=== PATIENT | male | born 1955 | race African-American/Black ===

== ENCOUNTER 2022-12-02 08:11 | Emergency (ER) | payer OTHER ==
[2022-12-02 08:16] VITALS: RESP 17; BMI 27.2
[2022-12-02] MEDS ORDERED: SODIUM CHLORIDE 1,000 ML IV STA (09:04)
[2022-12-02] MEDS ORDERED: ACETAMINOPHEN 1000 MG/100 ML BAG IVPB ONE (09:04)
[2022-12-02 09:50] LABS: BASO % 0.8 % (0-2.0); EOS % 1.1 % (0-4.5); HEMATOCRIT 39.4 % (35.4-49); MCH 30.7 pg (25.7-33.7); MCHC 32.9 g/dl (32.0-35.9); MEAN CELL VOLUME 93.3 fl (80-96); MEAN PLT VOLUME 8.9 fl (7.5-11.1); NEUT % 57.1 % (42.8-82.8); PLATELET COUNT 186 10^3/uL (134-434); RBC 4.23 M/mm3 (4.00-5.60); RDW 13.3 % (11.9-15.9); WHITE BLOOD COUNT 5.1 K/mm3 (4.0-10.0)
[2022-12-02] MEDS ORDERED: ACETAMINOPHEN INJECTION 100 ML IVPB ONE (09:56)
[2022-12-02 09:57] LABS: INR 1.13 (0.83-1.09); PROTHROMBIN TIME (PATIENT) 13.1 SEC (9.7-13.0)
[2022-12-02 10:00] LABS: ACTIVATED PTT 31.8 SECONDS (25.2-36.5)
[2022-12-02 10:13] LABS: BLOOD UREA NITROGEN 14.2 mg/dL (7-18); CALCIUM 9.2 mg/dL (8.5-10.1); MAGNESIUM 2.2 mg/dL (1.8-2.4)
[2022-12-02 10:14] LABS: ALBUMIN 3.9 g/dl (3.4-5.0)
[2022-12-02 10:16] LABS: CREATININE 1.1 mg/dL (0.55-1.3)
[2022-12-02 10:18] LABS: BILIRUBIN,TOTAL 0.6 mg/dL (0.2-1); TOT PROT 7.1 g/dl (6.4-8.2)
[2022-12-02 12:05] LABS: URINE APPEARANCE CLEAR; URINE COLOR YELLOW; URINE GLUCOSE (UA) NEGATIVE (NEGATIVE)
[2022-12-02 12:06] LABS: PH,URINE 7.5 (5.0-8.0); URINE BILIRUBIN NEGATIVE (NEGATIVE); URINE KETONE NEGATIVE (NEGATIVE); URINE LEUK ESTERASE NEGATIVE (NEGATIVE); URINE NITRITE NEGATIVE (NEGATIVE); URINE PROTEIN NEGATIVE (NEGATIVE)
[2022-12-02 12:25] VITALS: BP 150/82; PULSE 64; TEMP 98.4
== END 2022-12-02 12:35 | disposition home or self-care (01) ==
LOC: JER 08:11
PROC: 3E033NZ Introduction of Analgesics, Hypnotics, Sedatives into Peripheral Vein, Percutaneous Approach (ICD-10-PCS; principal; 2022-12-02)
PROC: 3E0337Z Introduction of Electrolytic and Water Balance Substance into Peripheral Vein, Percutaneous Approach (ICD-10-PCS; 2022-12-02)
DX: N28.1 Cyst of kidney, acquired (principal); K59.09 Other constipation; R10.84 Generalized abdominal pain
CPT/HCPCS: 36415; 74177-TC; 80053; 81003; 83605; 83690; 83735; 85025; 85610; 85730; 87086; 96361; 96374; 99285-25; Q9967

== ENCOUNTER 2022-12-03 03:18 | Emergency (ER) | payer OTHER ==
[2022-12-03 03:24] VITALS: RESP 18; TEMP 98.4; BMI 27.2
[2022-12-03] MEDS ORDERED: MAG HYDROX/AL HYDROX/SIMETH 30 ML UNIT-DOSE CUP PO ONE (04:40)
[2022-12-03] MEDS ORDERED: POLYETHYLENE GLYCOL (HEALTHYLAX) 3350 17 GM PACKET PO ONE (04:45)
[2022-12-03] MEDS ORDERED: POLYETHYLENE GLYCOL (HEALTHYLAX) 3350 17 GM PACKET ONE (05:38)
[2022-12-03] MEDS ORDERED: MAG HYDROX/AL HYDROX/SIMETH 30 ML UNIT-DOSE CUP ONE (05:38)
[2022-12-03 06:29] VITALS: BP 160/86; PULSE 59
== END 2022-12-03 06:45 | disposition home or self-care (01) ==
LOC: JER 03:18
DX: K59.00 Constipation, unspecified (principal); R10.32 Left lower quadrant pain
CPT/HCPCS: 99284-25

== ENCOUNTER 2024-05-05 08:45 | Emergency (ER) | payer OTHER ==
[2024-05-05 09:29] VITALS: RESP 17; BMI 27.2
[2024-05-05 09:40] LABS: BASO % 0.8 % (0-2.0); EOS % 1.6 % (0-4.5); HEMATOCRIT 40.6 % (35.4-49); HEMOGLOBIN 13.4 GM/dL (11.7-16.9); LYMPH % 23.4 % (8-40); MCH 31.1 pg (25.7-33.7); MCHC 32.9 g/dl (32.0-35.9); MEAN CELL VOLUME 94.6 fl (80-96); MEAN PLT VOLUME 9.2 fl (7.5-11.1); MONO % 16.1 % (3.8-10.2); NEUT % 58.1 % (42.8-82.8); PLATELET COUNT 197 10^3/uL (134-434); RDW 13.4 % (11.9-15.9); WHITE BLOOD COUNT 3.8 K/mm3 (4.0-10.0)
[2024-05-05] MEDS: SODIUM PHOSPHATE/NA BIPHOS 133 ML ENEMA PR ONE (09:43)
[2024-05-05 09:48] LABS: INR 1.09 (0.83-1.09); PROTHROMBIN TIME (PATIENT) 12.5 SEC (9.7-13.0)
[2024-05-05 09:51] LABS: ACTIVATED PTT 30.8 SECONDS (25.2-36.5)
[2024-05-05 10:08] LABS: POTASSIUM 4.7 mmol/L (3.5-5.1)
[2024-05-05 10:11] LABS: ALBUMIN 3.6 g/dl (3.4-5.0); BLOOD UREA NITROGEN 12.3 mg/dL (7-18); CALCIUM 8.8 mg/dL (8.5-10.1); MAGNESIUM 2.3 mg/dL (1.8-2.4)
[2024-05-05 10:14] LABS: CREATININE 1.1 mg/dL (0.55-1.3)
[2024-05-05 10:16] LABS: BILIRUBIN,TOTAL 0.8 mg/dL (0.2-1); TOT PROT 7.5 g/dl (6.4-8.2)
[2024-05-05] MEDS ORDERED: ACETAMINOPHEN INJECTION 100 ML ONE (11:16)
[2024-05-05] MEDS: ACETAMINOPHEN 1000 MG/100 ML BAG IVPB ONE (11:28)
[2024-05-05] MEDS: SODIUM CHLORIDE 0.9% 500 ML INFUS.BAG IV ONE (11:28)
[2024-05-05 11:58] LABS: URINE APPEARANCE CLEAR; URINE BILIRUBIN NEGATIVE (NEGATIVE); URINE COLOR YELLOW; URINE GLUCOSE (UA) NEGATIVE (NEGATIVE); URINE KETONE NEGATIVE (NEGATIVE)
[2024-05-05 11:59] LABS: PH,URINE 6.5 (5.0-8.0); URINE LEUK ESTERASE NEGATIVE (NEGATIVE); URINE NITRITE NEGATIVE (NEGATIVE); URINE PROTEIN NEGATIVE (NEGATIVE)
[2024-05-05 12:45] VITALS: BP 166/90; PULSE 56; TEMP 97.7
[2024-05-05 12:59] LABS: HIV INTERPRETATION NEGATIVE (NEGATIVE)
== END 2024-05-05 14:05 | disposition home or self-care (01) ==
LOC: JER 08:45
PROC: 3E033NZ Introduction of Analgesics, Hypnotics, Sedatives into Peripheral Vein, Percutaneous Approach (ICD-10-PCS; principal; 2024-05-05)
DX: K59.00 Constipation, unspecified (principal); R10.30 Lower abdominal pain, unspecified; Z20.822 Contact with and (suspected) exposure to COVID-19
CPT/HCPCS: 0241U-QW; 36415; 71045-TC-FY; 74177-TC; 80053; 81003; 83605; 83735; 85025; 85610; 85730; 86803; 86850; 86900; 86901; 87086; 87389; 96374; 99283-25; J0131; Q9967

== ENCOUNTER 2024-05-22 15:33 | Emergency (ER) | payer OTHER ==
[2024-05-22 15:39] VITALS: TEMP 97.9; BMI 27.2
[2024-05-22] MEDS ORDERED: FAMOTIDINE 20 MG/50 ML IVPB 20 MG/50 ML MG IVPB ONE (16:20)
[2024-05-22] MEDS ORDERED: ACETAMINOPHEN INJECTION 100 ML ONE (16:20)
[2024-05-22 16:55] LABS: HEMATOCRIT 39.8 % (35.4-49); MCH 30.8 pg (25.7-33.7); MCHC 32.8 g/dl (32.0-35.9); MEAN CELL VOLUME 93.8 fl (80-96); MEAN PLT VOLUME 8.9 fl (7.5-11.1); PLATELET COUNT 249 10^3/uL (134-434); RBC 4.24 M/mm3 (4.00-5.60); RDW 13.3 % (11.9-15.9)
[2024-05-22] MEDS: FAMOTIDINE 20 MG/50 ML IVPB 20 MG/50 ML MG IVPB ONE (16:55)
[2024-05-22] MEDS: ACETAMINOPHEN 1000 MG/100 ML BAG IVPB ONE (16:55)
[2024-05-22 17:03] LABS: INR 1.12 (0.83-1.09); PROTHROMBIN TIME (PATIENT) 12.6 SEC (9.7-13.0)
[2024-05-22 17:06] LABS: ACTIVATED PTT 33.8 SECONDS (25.2-36.5)
[2024-05-22 17:20] LABS: POTASSIUM 3.7 mmol/L (3.5-5.1)
[2024-05-22 17:24] LABS: ALBUMIN 3.8 g/dl (3.4-5.0); BLOOD UREA NITROGEN 10.7 mg/dL (7-18); CALCIUM 8.9 mg/dL (8.5-10.1); MAGNESIUM 2.4 mg/dL (1.8-2.4)
[2024-05-22 17:27] LABS: CREATININE 1.1 mg/dL (0.55-1.3)
[2024-05-22 17:28] LABS: BILIRUBIN,TOTAL 0.8 mg/dL (0.2-1)
[2024-05-22 18:16] LABS: HIV INTERPRETATION NEGATIVE (NEGATIVE)
[2024-05-22] MEDS ORDERED: MAGNESIUM CITRATE 300 ML BOTTLE ONE (21:20)
[2024-05-22 21:30] VITALS: BP 143/65; PULSE 65; RESP 17
[2024-05-22] MEDS: MAGNESIUM CITRATE 300 ML BOTTLE PO ONE (21:30)
== END 2024-05-22 23:04 | disposition home or self-care (01) ==
LOC: JER 15:33
PROC: 3E033GC Introduction of Other Therapeutic Substance into Peripheral Vein, Percutaneous Approach (ICD-10-PCS; principal; 2024-05-22)
PROC: 3E033NZ Introduction of Analgesics, Hypnotics, Sedatives into Peripheral Vein, Percutaneous Approach (ICD-10-PCS; 2024-05-22)
DX: R10.31 Right lower quadrant pain (principal); K59.00 Constipation, unspecified
CPT/HCPCS: 36415; 71046-TC-FY; 74177-TC; 76705-TC; 80053; 83605; 83690; 83735; 85027; 85610; 85730; 86803; 87389; 99285-25; J0131; Q9967

== ENCOUNTER 2024-07-15 10:13 | Emergency (ER) | payer OTHER ==
[2024-07-15 10:19] VITALS: BP 153/80; PULSE 63; RESP 18; TEMP 97.6; BMI 27.3
[2024-07-15] MEDS ORDERED: MAGNESIUM CITRATE 300 ML BOTTLE ONE (11:53)
[2024-07-15] MEDS: MAGNESIUM CITRATE 300 ML BOTTLE PO ONE (12:13)
[2024-07-15 12:50] LABS: BASO % 0.9 % (0-2.0); EOS % 1.1 % (0-4.5); HEMATOCRIT 41.2 % (35.4-49); HEMOGLOBIN 13.4 GM/dL (11.7-16.9); LYMPH % 31.1 % (8-40); MCH 30.9 pg (25.7-33.7); MCHC 32.6 g/dl (32.0-35.9); MEAN CELL VOLUME 94.8 fl (80-96); MEAN PLT VOLUME 9.1 fl (7.5-11.1); MONO % 7.7 % (3.8-10.2); NEUT % 59.2 % (42.8-82.8); PLATELET COUNT 222 10^3/uL (134-434); RBC 4.35 M/mm3 (4.00-5.60); RDW 13.4 % (11.9-15.9); WHITE BLOOD COUNT 5.5 K/mm3 (4.0-10.0)
[2024-07-15 12:52] LABS: INR 1.04 (0.83-1.09)
[2024-07-15 12:55] LABS: ACTIVATED PTT 33.2 SECONDS (25.2-36.5)
[2024-07-15 13:06] LABS: POTASSIUM 3.9 mmol/L (3.5-5.1)
[2024-07-15 13:09] LABS: BLOOD UREA NITROGEN 7.8 mg/dL (7-18); CALCIUM 8.9 mg/dL (8.5-10.1)
[2024-07-15 13:10] LABS: ALBUMIN 3.7 g/dl (3.4-5.0)
[2024-07-15 13:14] LABS: CREATININE 0.9 mg/dL (0.55-1.3)
[2024-07-15 13:15] LABS: BILIRUBIN,TOTAL 0.6 mg/dL (0.2-1); TOT PROT 7.6 g/dl (6.4-8.2)
[2024-07-15] MEDS: SODIUM PHOSPHATE/NA BIPHOS 133 ML ENEMA PR ONE (13:27)
== END 2024-07-15 16:16 | disposition home or self-care (01) ==
LOC: JER 10:13
DX: K59.00 Constipation, unspecified (principal); R10.31 Right lower quadrant pain
CPT/HCPCS: 36415; 74177-TC; 80053; 83735; 85025; 85610; 85730; 86850; 86900; 86901; 99285-25

== ENCOUNTER 2024-12-20 08:07 | Emergency (ER) | payer OTHER ==
[2024-12-20 08:18] VITALS: BMI 27.2
[2024-12-20] MEDS ORDERED: ACETAMINOPHEN INJECTION 100 ML ONE (09:38)
[2024-12-20] MEDS: ACETAMINOPHEN 1000 MG/100 ML BAG IVPB ONE (09:43)
[2024-12-20 09:49] LABS: ABSOLUTE IMMATURE GRANULOCYTES 0.01 x10^3/uL (0.0-0.031); BASOPHILS # 0.04 x10^3/uL (0.01-0.08); EOSINOPHIL % 1.8 % (0.8-7.0); EOSINOPHILS # 0.12 x10^3/uL (0.04-0.54); HEMATOCRIT 41.6 % (40.1-51.0); HEMOGLOBIN 13.2 g/dL (13.7-17.5); MCHC 31.7 g/dl (32.3-36.5); MEAN CELL VOLUME 95.6 fl (79.0-92.2); MONOCYTE # 0.62 x10^3/uL (0.30-0.82); MONOCYTE % 9.1 % (5.3-12.2); PLATELET COUNT 167 x10^3/uL (163-337); RDW 11.9 % (12.2-16.4)
[2024-12-20 09:54] LABS: INR 1.07 (0.83-1.09); PROTHROMBIN TIME (PATIENT) 11.7 SEC (9.7-13.0)
[2024-12-20 09:57] LABS: ACTIVATED PTT 28.9 SECONDS (25.2-36.5)
[2024-12-20] MEDS: MINERAL OIL ENEMA 133 ML ENEMA RC ONE (10:04)
[2024-12-20 10:11] LABS: POTASSIUM 3.3 mmol/L (3.5-5.1)
[2024-12-20 10:19] LABS: ALBUMIN 3.7 g/dl (3.4-5.0); BLOOD UREA NITROGEN 12.4 mg/dL (7-18); CALCIUM 9.2 mg/dL (8.5-10.1)
[2024-12-20 10:21] LABS: CREATININE 1.1 mg/dL (0.55-1.3)
[2024-12-20 10:23] LABS: TOT PROT 7.3 g/dl (6.4-8.2)
[2024-12-20 10:24] LABS: BILIRUBIN,TOTAL 0.7 mg/dL (0.2-1)
[2024-12-20 11:00] LABS: MAGNESIUM 2.1 mg/dL (1.8-2.4)
[2024-12-20 15:18] VITALS: BP 160/74; PULSE 54; RESP 18; TEMP 98.2
== END 2024-12-20 15:20 | disposition home or self-care (01) ==
LOC: MERGE 08:07 → JER 08:07
PROC: 3E033NZ Introduction of Analgesics, Hypnotics, Sedatives into Peripheral Vein, Percutaneous Approach (ICD-10-PCS; principal; 2024-12-20)
DX: K59.00 Constipation, unspecified (principal); R10.84 Generalized abdominal pain; R14.0 Abdominal distension (gaseous)
CPT/HCPCS: 36415; 74177-TC; 80053; 83690; 83735; 85025; 85610; 85730; 86850; 86900; 86901; 99285-25; J0131; Q9967

== ENCOUNTER 2024-12-27 13:43 | Emergency (ER) | payer OTHER ==
[2024-12-27 13:50] VITALS: BP 130/84; PULSE 68; RESP 16; TEMP 97.9; BMI 28.8
[2024-12-27] MEDS ORDERED: MAG HYDROX/AL HYDROX/SIMETH 30 ML UNIT-DOSE CUP ONE (14:28)
[2024-12-27] MEDS: MAG HYDROX/AL HYDROX/SIMETH 30 ML UNIT-DOSE CUP PO ONE (14:41)
[2024-12-27] MEDS: MINERAL OIL ENEMA 133 ML ENEMA RC ONE (14:56)
== END 2024-12-27 16:37 | disposition home or self-care (01) ==
LOC: JER 13:43
DX: K59.09 Other constipation (principal); R94.31 Abnormal electrocardiogram [ECG] [EKG]
CPT/HCPCS: 74018-TC-FY; 93005; 93010; 99284-25

== ENCOUNTER 2025-01-03 06:53 | Day surgery (SDC) | payer OTHER ==
[2025-01-03] MEDS ORDERED: LIDOCAINE HCL/PF 1% SDV 5ML VIAL ONE (07:13)
[2025-01-03] MEDS ORDERED: DEXAMETHASONE SOD PHOSPHATE 10 MG/1 ML VIAL ONE (07:14)
[2025-01-03 07:25] VITALS: RESP 18
[2025-01-03] MEDS ORDERED: SODIUM CHLORIDE 0.9% P/F 10 ML VIAL IJ ONE (07:30)
[2025-01-03] MEDS ORDERED: ACETAMINOPHEN 500 MG TABLET (FP) ONE (08:30)
[2025-01-03 08:37] VITALS: BP 122/68; PULSE 66; TEMP 97.4
[2025-01-03] MEDS: ACETAMINOPHEN 500 MG TABLET (FP) PO PRN (08:45)
== END 2025-01-03 09:36 | disposition home or self-care (01) ==
LOC: JASU-SURG 06:53
PROVIDERS: ATTEND Pain Medicine Pain Medicine
PROC: 3E0R3BZ Introduction of Anesthetic Agent into Spinal Canal, Percutaneous Approach (ICD-10-PCS; 2025-01-03)
PROC: 3E0R33Z Introduction of Anti-inflammatory into Spinal Canal, Percutaneous Approach (ICD-10-PCS; principal; 2025-01-03 08:15)
DX: M48.061 Spinal stenosis, lumbar region without neurogenic claudication (principal); M54.16 Radiculopathy, lumbar region
CPT/HCPCS: 76000-TC-FY; J1100

== ENCOUNTER 2025-03-10 11:52 | Emergency (ER) | payer OTHER ==
[2025-03-10 12:09] VITALS: BP 157/84; PULSE 62; RESP 20; TEMP 97.9; BMI 30.7
[2025-03-10] MEDS ORDERED: ACETAMINOPHEN 325 MG TABLET (FP) ONE (13:13)
[2025-03-10] MEDS ORDERED: KETOROLAC TROMETHAMINE 15 MG/ML VIAL ONE (13:13)
[2025-03-10] MEDS: KETOROLAC TROMETHAMINE 15 MG/ML VIAL IVPUSH ONE (13:26)
[2025-03-10] MEDS: ACETAMINOPHEN 325 MG TABLET (FP) PO ONE (13:26)
[2025-03-10 13:31] LABS: ABSOLUTE IMMATURE GRANULOCYTES 0.01 x10^3/uL (0.0-0.031); BASOPHILS # 0.06 x10^3/uL (0.01-0.08); EOSINOPHIL % 1.4 % (0.8-7.0); EOSINOPHILS # 0.06 x10^3/uL (0.04-0.54); MCHC 30.8 g/dl (32.3-36.5); MEAN CELL VOLUME 96.7 fl (79.0-92.2); MEAN PLT VOLUME 11.1 fl (9.4-12.4); MONOCYTE # 0.40 x10^3/uL (0.30-0.82); MONOCYTE % 9.6 % (5.3-12.2); RDW 12.2 % (12.2-16.4)
[2025-03-10 13:54] LABS: CO2 27.0 mmol/L (21-32)
[2025-03-10 13:57] LABS: CREATININE 1.1 mg/dL (0.55-1.3); SGOT/AST 21.0 U/L (15-37); SGPT/ALT 25.0 U/L (13-61)
[2025-03-10 13:59] LABS: TOT PROT 7.4 g/dl (6.4-8.2)
[2025-03-10 14:00] LABS: ALK PHOS 59.0 U/L (45-117)
[2025-03-10 14:22] LABS: GLUCOSE,RANDOM 97.0 mg/dL (74-106)
== END 2025-03-10 17:05 | disposition home or self-care (01) ==
LOC: MERGE 11:52 → JER 11:52
PROC: 3E0333Z Introduction of Anti-inflammatory into Peripheral Vein, Percutaneous Approach (ICD-10-PCS; principal; 2025-03-10)
DX: M77.31 Calcaneal spur, right foot (principal); M54.2 Cervicalgia; R07.0 Pain in throat; R13.10 Dysphagia, unspecified; R25.1 Tremor, unspecified; M79.661 Pain in right lower leg; R26.2 Difficulty in walking, not elsewhere classified; M79.671 Pain in right foot
CPT/HCPCS: 36415; 70492-TC; 73610-TC-RT-FY; 73630-TC-RT-FY; 80053; 83735; 85025; 96374; 99285-25; Q9967

== ENCOUNTER → 2025-04-10 | Day surgery (SDC) | payer OTHER ==
[~2025-04-10] MED LIST: BUPIVACAINE HCL/PF 0.25% (2.5MG/ML) 10 ML VIAL ONE; BUPIVACAINE HCL/PF 0.5% (5MG/ML) 10 ML VIAL ONE; BUPIVACAINE HCL/PF 0.75% 10 ML VIAL ONE; DEXAMETHASONE SOD PHOSPHATE 10 MG/1 ML VIAL ONE; LIDOCAINE HCL/PF 1% SDV 5ML VIAL ONE; TRIAMCINOLONE ACET 40MG/1ML VIAL ONE
== END | disposition home or self-care (01) ==
LOC: JASU-SURG 06:17
PROVIDERS: ATTEND Pain Medicine Pain Medicine
PROC: 3E033GC Introduction of Other Therapeutic Substance into Peripheral Vein, Percutaneous Approach (ICD-10-PCS; principal; 2025-04-10)
DX: Z53.8 Procedure and treatment not carried out for other reasons (principal)
CPT/HCPCS: J1100